=== PATIENT | male | born 1935 | race Caucasian/White ===

== ENCOUNTER 2017-10-10 11:06 | Outpatient (CLI) | payer MEDICARE, OTHER ==
[~2017-10-10 11:06] MED LIST: Gadobenate Dimeglumine 529 MG/1 ML (20ML VIAL) ONE
[2017-10-10 13:16] LABS: Estimated GFR-MDRD - POC Greater than 90
--- NOTE | 2017-10-10 13:57 | MRI ---
MRI LUMBAR SPINE WITH AND WITHOUT GADOLINIUM CONTRAST: HISTORY: Low back pain. Prior surgeries. FINDINGS: Postoperative fixation is apparent at the T12-L3 levels. The images including the retroperitoneum sh ow cysts arising from the cortex of the right kidney. Conus medullaris has a normal appearance. There is desiccation of all of the intervertebral disks. T12-L1: Postoperative changes. Mild osteophytosis. Central canal and neural foramen are patent. L1-2: Postoperative changes with interbody fusion. Posterior osteophyte complex at the disk space m inimally effaces the thecal sac. Neural foramen are patent, but partially obscured. L2-3: Postoperative changes. Central canal and neural foramen are patent but partially obscured. L3-4: Posterior disk bulge and circumferential degenerative changes result in very severe stenosis o f the central canal and severe stenosis of each neural foramen. L4-5: Posterior disk bulge and circumferential degenerative changes result in moderate to severe ghulam nosis of the central canal. There is severe right and moderate left foraminal stenoses. L5-S1: Disk space narrowing. Osteophytosis. Thecal sac is patent. Moderate stenosis of each neura l foramen. IMPRESSION: 1. Prominent degenerative changes with central canal and foraminal stenoses at the L3-4 and L4-5 lev els as detailed above. 2. Postoperative changes of the thoracolumbar spine without evidence of complication. POS: GALINA
== END 2017-10-10 11:07 | disposition home or self-care (01) ==
LOC: SCSMRI 11:06
PROVIDERS: ATTEND Internal Medicine
DX: M54.5 Low back pain (principal); M47.896 Other spondylosis, lumbar region; M99.83 Other biomechanical lesions of lumbar region; Z98.890 Other specified postprocedural states
CPT/HCPCS: 72158; 82565; A9579

== ENCOUNTER 2017-11-15 13:05 | Outpatient (CLI) | payer MEDICARE, OTHER ==
--- NOTE | 2017-11-15 15:05 | RAD ---
LUMBAR SPINE 4 VIEWS: HISTORY: An 82-year-old male with a history of lumbar radiculopathy, low back pain extending down both legs. FINDINGS: Screw and mony placement changes are noted at T12 through L3 with fusion of L1 and L2 vertebral bodies . Mild multilevel retropulsion, but no evidence for abnormal translation between flexion and extensi on. Fusion changes at L1 and L2 with mony and screw fixation changes from T12 through L3. No abnorma l translation. POS: FARIDEH
--- NOTE | 2017-11-15 15:20 | CT ---
CT LUMBAR SPINE: Date: 11/15/17 Multiple axial tomograms obtained through the lumbar spine with multiplanar reconstruction. INDICATION: Lumbar radiculopathy. Lumbar surgery. FINDINGS: Pedicle screws and rods transfix T12, L1, L2, and L3 levels. There is loss of disc space at L1-2 with partial fusion. Disc narrowing at L2-3. There are moderate degenerative changes throughout the lumba r spine. Degenerative disc changes at L4-5 and L5-S1 with vacuum phenomenon within the disc space. At T11-T12, there is mild diffuse disc bulge. Facet hypertrophy. Mild central canal stenosis. At T12-L1, no significant disc bulge. Facet hypertrophy. Posterior laminectomy change. No significant central canal stenosis. Pedicle screws at T12 appear adequately positioned. At L1-2, there is loss of disc space with bony fusion. Posterior bony hypertrophic changes are seen f lattening the thecal sac. There is facet hypertrophy. Posterior laminectomy change. Mild central travis l stenosis. Left foraminal stenosis secondary to hypertrophic change. Pedicle screws at L1 appear john quately positioned. Pedicle screws at L2 are noted. The left pedicle screw encroaches in the lateral recess. At L2-3, there is mild disc bulge and prominent facet hypertrophy. Mild central canal stenosis. Pedicle screws at L3 are noted. The left pedicle screw encroaches into the lateral recess. At L3-4, diffuse disc bulge flattens and compresses the thecal sac. Mild facet hypertrophy. Severe ce ntral canal stenosis at this level. At L4-5, broad based disc bulge with facet and ligamentous hypertrophy results in severe central travis l stenosis. At L5-S1, there is mild disc bulge. Degenerative disc changes with loss of disc space and vacuum phen omenon. Facet hypertrophy. No significant central canal stenosis. Mild foraminal narrowing bilaterall y due to hypertrophic change. IMPRESSION: Postoperative and degenerative changes lumbar spine noted as described above. Severe central canal st enosis at L3-4 and L4-5. Findings at each level as above. POS: GALINA
== END 2017-11-15 13:06 | disposition home or self-care (01) ==
LOC: TBSIIMAG 13:05
PROVIDERS: ATTEND Surgery
DX: M47.26 Other spondylosis with radiculopathy, lumbar region (principal); M47.27 Other spondylosis with radiculopathy, lumbosacral region; M51.16 Intervertebral disc disorders with radiculopathy, lumbar region; M51.17 Intervertebral disc disorders with radiculopathy, lumbosacral region; M48.061 Spinal stenosis, lumbar region without neurogenic claudication; M99.83 Other biomechanical lesions of lumbar region; Z98.890 Other specified postprocedural states; Z98.1 Arthrodesis status
CPT/HCPCS: 72110; 72131

== ENCOUNTER 2018-01-15 10:58 | Outpatient (CLI) | payer MEDICARE, OTHER ==
[2018-01-15 13:04] LABS: #Basophils 0.1 thou/uL (0.0-0.2); #Eosinphils 0.2 thou/uL (0.0-0.7); #Lymphocytes 2.4 thou/uL (1.20-3.40); #Monocytes 0.8 thou/uL (0.11-0.59); #Neutrophils 3.9 thou/uL (1.40-6.50); %Eosinophils 2.6 % (0.0-10.0); %Monocytes 10.7 % (0.0-10.0); %Neutrophils 52.8 % (42.0-75.0); Hemoglobin 16.7 g/dL (14.0-18.0); Mean Corpuscular HGB CONC 34.7 g/dL (32.0-36.0); Mean Corpuscular Volume 95.1 fL (78.0-98.0); Mean Platelet Volume 8.1 fL (7.4-10.4); Platelet Count 173 thou/uL (130-400); RBC Distribution Width 11.8 % (11.5-14.5); Red Blood Cell (RBC) Count 5.06 mill/uL (4.70-6.10); White Blood Cell (WBC) Count 7.3 thou/uL (4.8-10.8)
[2018-01-15 13:13] LABS: PTT 28.2 SEC (22.9-36.1)
[2018-01-15 13:14] LABS: Prothrombin Time 13.4 SEC (12.0-14.7)
[2018-01-15 13:20] LABS: Anion Gap 14 mmol/L (10-20); BUN (Urea Nitrogen) 29 mg/dL (8.4-25.7); Calc. Creatinine Clearance 0 mL/min (70-130); Calcium 9.6 mg/dL (7.8-10.44); Carbon Dioxide 28 mmol/L (23-31); Chloride 103 mmol/L (98-107); Estimated GFR-MDRD 69; Glucose 95 mg/dL (83-110); Potassium 4.8 mmol/L (3.5-5.1); Sodium 140 mmol/L (136-145)
== END 2018-01-15 10:59 | disposition home or self-care (01) ==
LOC: LABBT 10:58
PROVIDERS: ATTEND Surgery
DX: Z01.818 Encounter for other preprocedural examination (principal); M54.16 Radiculopathy, lumbar region; M48.061 Spinal stenosis, lumbar region without neurogenic claudication
CPT/HCPCS: 80048; 85025; 85610; 85730

== ENCOUNTER 2018-01-21 10:24 | Day surgery (SDC) | payer MEDICARE, OTHER ==
[2018-01-15 11:13] VITALS: BMI 27.1
[2018-01-21] MEDS ORDERED: CEFAZOLIN/Water 2 GM/20 ML SYRINGE ONE (11:34)
[2018-01-21] MEDS ORDERED: Bacitracin Zinc Ointment 30 gm TUBE ONE (11:35)
[2018-01-21] MEDS ORDERED: Sodium Chloride 0.9% 10 ML ONE (11:35)
[2018-01-21] MEDS ORDERED: Thrombin 5000 UNITS/5 ML VIAL ONE ×2 (11:35→14:07)
[2018-01-21] MEDS ORDERED: Fentanyl 100 MCG/2 ML VIAL ONE ×2 (12:19→16:58)
[2018-01-21] MEDS ORDERED: Lidocaine 1% PF 5 ML VIAL ONE (14:43)
[2018-01-21] MEDS ORDERED: Ondansetron HCl/PF 4 MG/2 ML Vial ONE (14:43)
[2018-01-21] MEDS ORDERED: PHENYLEPHRINE-NS 100 MCG/ML 10 ML SYRINGE ONE (14:43)
[2018-01-21] MEDS ORDERED: ePHEDrine/0.9% NaCl/PF SYRINGE 50 mg/10 ml ONE (14:43)
[2018-01-21] MEDS ORDERED: PROPOFOL 200 MG/20 ML VIAL ONE (14:43)
[2018-01-21] MEDS ORDERED: Glycopyrrolate 0.2 MG/ML 5 ML SYRINGE ONE (14:43)
[2018-01-21] MEDS ORDERED: tiZANidine HCl 4 MG TAB PO PRN (14:55)
[2018-01-21] MEDS ORDERED: Bisacodyl 10 MG SUPP PR PRN (14:55)
[2018-01-21] MEDS ORDERED: Promethazine HCl 25 MG/ML VIAL IM PRN (14:55)
[2018-01-21] MEDS ORDERED: Mag-Al 1200 mg/1200 mg/30 ML UDCUP PO PRN (14:55)
[2018-01-21] MEDS ORDERED: Acetaminophen/Codeine 30-300mg Tablet PO PRN (14:55)
[2018-01-21] MEDS ORDERED: Milk Of Magnesia 30 ML UDCUP PO PRN (14:55)
[2018-01-21] MEDS ORDERED: Acetaminophen 325 MG TAB PO PRN (14:55)
[2018-01-21] MEDS ORDERED: Fleet Enema 133 ML BOT PR PRN (14:55)
[2018-01-21] MEDS ORDERED: traMADol HCl 50 MG TAB PO PRN (14:55)
--- NOTE | 2018-01-21 15:08 | OP ---
OR: #12 WOUND TYPE: Type 1 wound. SURGEON: Ronald Burrows M.D. SENIOR CREDIT OFFICER: Aftab Spencer PA-C. 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 PROCEDURE: L3-L4 and L4-L5 laminectomies, partial facetectomies and foraminotomies over the L3, L4, L5 nerve roots. DESCRIPTION OF PROCEDURE: After informed consent was obtained from the patient, the patient brought to OR #12. Proper patient pause and the identification was carried out. He was placed under excelle nt general endotracheal anesthesia and positioned prone on the OR table. All appropriate points were padded. We identified the L3, L4, L5 dorsal spines and lamina in the prior thoracolumbar instrument ation. This region was sterilely cleansed, prepared, and draped. The incision was drawn out near th e bottom of the prior thoracolumbar wound. Proper patient pause and identification was carried out. The wound was then opened with a combination of sharp, monopolar and blunt dissection. The L3, L4, L5 dorsal spines and lamina were exposed. There was some scar tissue. Once localization film confir med our area of interest and we performed an L3, L4, L5 laminectomies, partial facetectomies and fora minotomies. We encountered thinning of the dura over the right traversing L4 nerve root and a small amount of CSF leaked. This was buttressed with Gelfoam and sealed and no leak. No further leak was identified again the amount of spinal fluid leakage was quite small. Copious irrigation occurred thr oughout. We maximized hemostasis. DuraSeal was placed over the dural tube. Valsalva maneuver was p erformed. There was no leak identified. The wound was then closed following maximizing hemostasis a nd sprinkling of vancomycin powder. The patient then emerged from anesthesia.
[2018-01-21] MEDS: Sodium Chloride 0.9% 1,000 ML IV SCH (19:37)
[2018-01-21] MEDS: Carvedilol 6.25 MG TAB PO SCH (20:55)
[2018-01-21] MEDS ORDERED: Atorvastatin Calcium 20 MG TAB PO SCH (21:00)
[2018-01-21] MEDS: CEFAZOLIN/Water 2 GM/20 ML SYRINGE SLOW IVP SCH (21:15)
[2018-01-21] MEDS: HYDROcodone/Acetaminophen 7.5/325 mg Tablet PO PRN (21:47)
[2018-01-22 01:26] VITALS: TEMP 98.7
[2018-01-22] MEDS: CEFAZOLIN/Water 2 GM/20 ML SYRINGE SLOW IVP SCH (04:26)
[2018-01-22] MEDS: Sodium Chloride 0.9% 1,000 ML IV SCH (04:34)
[2018-01-22] MEDS: HYDROcodone/Acetaminophen 7.5/325 mg Tablet PO PRN (06:59)
[2018-01-22] MEDS: Carvedilol 6.25 MG TAB PO SCH (08:03)
[2018-01-22 08:05] VITALS: BP 131/72
--- NOTE | 2018-01-22 09:53 | PRG ---
DATE OF SERVICE: 01/22/2018 Mr. Alvares is postoperative day 1 following L3-5 decompression. He is doing very well. He has had no symptoms of CSF hypotension. His wound is dry. He has excellent strength in his lower extremity myotomes. Pain control was a bit of an issue overnight, but it is much better this morning. He is voiding, tolerating orals and ambulating and he has excellent strength in his lower extremity myotome s. We will plan for dismissal. We went over both intra and postoperative issues.
== END 2018-01-22 10:15 | disposition home or self-care (01) ==
LOC: SDC 10:24 → T4-A 14:55 → UNDOADMOB 14:55 → T4-A 14:55 → SDC 01-22 10:15 → UNDODISOB 01-22 10:15
PROVIDERS: ATTEND Surgery
PROC: 01NB0ZZ Release Lumbar Nerve, Open Approach (ICD-10-PCS; principal; 2018-01-21)
DX: M48.061 Spinal stenosis, lumbar region without neurogenic claudication (principal); M54.16 Radiculopathy, lumbar region; Z91.040 Latex allergy status; Z79.899 Other long term (current) drug therapy
CPT/HCPCS: 76001; A4216; J2001; J2270; J2405; J2704; J3010; J3370; J3490